=== PATIENT | female | born 1985 ===

== ENCOUNTER → 2023-01-11 07:08 | Outpatient (CLI) | payer OTHER, SELFPAY ==
--- NOTE | ~2023-01-11 | MR_ITS ---
MRI of the right elbow MEDICAL HISTORY: Pain TECHNIQUE: Proton-density and proton-density fat-sat images were acquired in the axial, coronal, and sagittal planes. FINDINGS: Ulnar collateral ligament is intact. The radial collateral ligament and the lateral ulnar c ollateral ligament are intact. There is mild tendinosis and soft tissue edema at the common flexor te ndon origins/medial epicondyle. There is minimal tendinosis of the common extensor tendon origin. Bone marrow signals are essentially unremarkable. No osseous or articular abnormality of the elbow hernesto int seen. No significant joint effusion. Brachialis, biceps, and triceps tendons are intact. Visualized muscle bellies are unremarkable. Subcu taneous soft tissues are unremarkable. No soft tissue mass or fluid collection evident. IMPRESSION: Findings most consistent with mild medial epicondylitis. Reviewed, dictated and finalized at [facility].
== END ==
PROVIDERS: PCP Orthopaedic Surgery; Visit Provider Orthopaedic Surgery
DX: M25.521 Pain in right elbow (principal); R93.6 Abnormal findings on diagnostic imaging of limbs
CPT/HCPCS: 73221